=== PATIENT | female | born 1955 | race Caucasian/White ===

== ENCOUNTER 2018-09-29 07:45 | Outpatient (CLI) | payer BC ==
[2018-09-29 09:03] LABS: PARTIAL THROMBOPLASTIN TIME 26 SECONDS (22-32); PROTHROMBIN TIME 9.8 SECONDS (9.0-12.0)
== END 2018-09-29 23:59 | disposition home or self-care (01) ==
LOC: LAB 07:45
PROVIDERS: ATTEND Otolaryngology
DX: D69.1 Qualitative platelet defects (principal); Z87.891 Personal history of nicotine dependence
CPT/HCPCS: 36415; 85610; 85730

== ENCOUNTER 2022-04-03 10:39 | Outpatient (CLI) | payer MEDICARE, BC ==
[~2022-04-03] VITALS: Ht 175.3 cm; Wt 52.6 kg
[2022-04-03] MEDS ORDERED: NORMAL SALINE IV ONE (12:05)
[2022-04-03] MEDS ORDERED: SINCALIDE IV ONE (12:05)
== END 2022-04-03 23:59 | disposition home or self-care (01) ==
LOC: RAD 10:39
PROVIDERS: ATTEND Internal Medicine Gastroenterology
DX: R10.11 Right upper quadrant pain (principal)
CPT/HCPCS: 78227; A9537; J2805; J3490